=== PATIENT | male | born 1975 | race Caucasian/White ===

== ENCOUNTER 2024-09-09 15:22 | Outpatient (CLI) | payer BC, SELFPAY ==
--- NOTE | ~2024-09-09 | XR_ITS ---
EXAMINATION: XR chest 2V 09/09/2024 15:30 INDICATION: Nicotine dependence PROCEDURE: 2 view chest COMPARISON: 12/23/2011 FINDINGS: The lungs are clear. The cardiomediastinal silhouette is within normal limits. There are no pleural effusions. There is no pneumothorax suspected. IMPRESSION: 1: NO ACUTE CARDIOPULMONARY DISEASE. Reviewed, dictated and finalized at location A.
--- OUTSIDE RECORDS SUMMARY | 2024-09-09 15:26 | XMS_ITS | Clinical Summary ---
Author Organization [facility] Address [facility] [place] [address] Care Team Providers Care Millinery Department Manager Name Role Phone None, Provider MD Primary Care Provider Unavaila ble Allergies No known active allergies Medications HYDROcodone-darius taminophen (NORCO) 7.5-325 MG tablet Take 1 tablet by mouth. 12/02/2022 Active tamsulosin (FLOMAX) 0.4 MG Cap Take 1 capsule (0.4 mg total) by mouth daily. 12/02/2022 Active Social History Tobacco Use Types Packs/Day Years Used Date Smoking Tobacco: Every Day Cigarettes Smokeless Tobacco: Never Tobacco Cessation:Ready to Q uit: Not Asked; Counseling Given: Not Answered Alcohol Use Standard Drinks/Week Comments Not Currently 0 (1 standard drink = 0.6 oz pur e alcohol) occassioanlly Sex and Gender Information Value Date Recorded Sex Assigned at Not on file Legal Sex Male 4:18 PM CDT Gender Identity Not on file Sexual Orientation Not on file Last Filed Vital Signs Vital Sign Reading Time Taken Comments Blood Pressure 125/78 12/10/2022 1:28 PM CDT Pulse 50 12/10/2022 1:28 PM CDT Temperature 36.3 C (97.3 F) 12/10/2022 1:28 PM CDT Respiratory Rate 18 12/10/2022 1:28 PM CDT Oxygen Saturation 98% 12/10/2022 1:28 PM CDT Inhaled Oxygen Concentration - - Weight 77.1 kg (170 lb) 12/11/2022 6:51 AM CDT Height 177.8 cm (5' 10) 12/11/2022 6:51 AM CDT Body Mass Index 24.39 12/11/2022 6:51 AM CDT Plan of Treatment Health Maintenance Due Date Last Done Comments Colorectal Cancer Screening Colonoscopy (10 Years) 1977 Annual Physical 1980 Hepatitis C 1995 DTaP, Tdap and Td Vaccines ( 1 - Tdap) 1996 Hepatitis B Vaccines (1 of 3 - 19+ 3-dose series) 1996 Pneumococcal Vaccine: Pediat rics (0 to 5 Years) and At-Risk Patients (6 to 49 Years) (1 of 2 - PCV) 1996 COVID-19 Vaccine ( - 2023-2 5 season) 2023 Meningococcal B Vaccine Aged Out No l onger eligible based on patient's age to complete this topic Meningococcal Vaccine Aged Out No manoj carolynn eligible based on patient's age to complete this topic RSV Immunizations Under 20 Months Aged Out No longer eligible based on patient's age to complete this topic Insurance Care Teams Millinery Department Manager Relationship Specialty Start Date End Date None, Provider, PCP - General UNKNOWN PHYSICIAN SPECIALTY 12/10/22
--- OUTSIDE RECORDS SUMMARY | 2024-09-09 15:26 | XMS_ITS | Continuity of Care Document ---
Author Organization [facility] Address [address] [place] [address] Phone Care Team Providers Care Supervisor Boat Outfitting Name Role Phone Administrative, Provider Unavailable Unavail able Procedures Procedure Date Medical Record Copy Medical Record Copy Per Page Affidavit Office/outpatient visit,est, mod 2009 Supplemental Report Office/outpatient visit,est, mod 2009 Supplemental Report Office/outpatient visit,est, mod 2009 X-ray exam of neck spine2-3 views X-ray exam of elbow, complete 0 Supplemental Report Office/outpatient visit,[place], [facility] [place] 2009 X-ray exam of ribs, one side X-ray exam of humerus, 2+ views 010 X-ray exam of elbow, complete 0 Measure blood oxygen level, single Advance Directives Directive Yes / No Effective Date File Name No Information Encounters Encounter Description Practice Location Reason(s) For Visit Diagnoses Date Provider Providers Copied on Encounter [facility], [address] [address], [place], [place], [id number], tel:[phone] [facility] No Information 0 Administrative Provider. [address] [facility], [address], [place], [place], [address], [place]. tel:[phone] Office/outpa tient visit,est, mod [facility], [address], [id number], tel:[phone] [facility] No Information Apr-2 2-201 0 Nancy Sancheza. [address] [address], [place], [place], [address], [place]. tel:[phone] Office/outpa tient visit,[facility], [facility] [facility], [address] [address], [place], [place], [id number], tel:[phone] [facility] No Information Apr-1 6-201 0 Nancy Sancheza. [address] [address], [place], [place], [address], [place]. tel:[phone] Office/outpa tient visit,[facility], [address], [id number], tel:[phone] [facility] No Information Mar-0 8-201 0 Nancy Bell. [address] [address], [place], [place], [address], [place]. tel:[phone] Office/outpa tient visit,[facility], [address], [id number], [place] tel:[phone] [facility] No Information Mar-2 5 0 Nancy Bell. [address], [id number], [place]. tel:[phone] Family History Family Member Type Diagnosis Age At Onset No Information Payers Payer name Insurance type Covered constitution party ID Authoriza tion(s) No Information Social History [...]
--- OUTSIDE RECORDS SUMMARY | 2024-09-09 15:26 | XMS_ITS | Continuity of Care Document ---
Author Organization [facility] Address [address] [place] [address] Phone Care Team Providers Care Second Class Welder Name Role Phone Giovanny Luz MD Unavailable Unavailable Procedures Procedure Date Rating Letter Office/outpatient visit,est, mod 2009 Supplemental Report Office/outpatient visit,est, mod 2009 Supplemental Report Office consultation, moderate 0 Advance Directives Directive Yes / No Effective Date File Name No Information Encounters Encounter Description Practice Location Reason(s) For Visit Diagnoses Date Provider Providers Copied on Encounter Rating Letter [facility], [address], [address] [place] [address], tel:[phone] [facility] No Information June-2 0-201 0 Sukh Baltazar. [address] [facility], [address], [place], [place], [address] , [place]. tel: [phone] [facility], [address], [id number], tel:[phone] [facility] No Information June-0 5-201 0 Sukh Baltazar. [address] [facility], [address], [place], [place], [address] , [place]. tel:[phone] [facility], [address] [facility] [address], [place], [address], tel:[phone] [facility] No Information May-0 6-201 0 Sukh Baltazar. [address] [facility], [address], [place], [place], [address] , [place]. [phone] Office consultation, moderate [facility], [address] [facility] [address], [place], [address], tel:[phone] [facility] No Information Apr-2 3-201 0 Sukh Baltazar. [address] [facility], [address], [place], [place], [address] , [place]. tel:[phone] Referring Provider: Arabella Bey, [facility] [address], [place], [address] . tel:[phone] Family History Family Member Type Diagnosis Age At Onset No Information Payers Payer name Insurance type Covered green party ID Boris monzon(s) Cam [id number] Social History Type Description Quantity Date Captured [...]
--- OUTSIDE RECORDS SUMMARY | 2024-09-09 15:26 | XMS_ITS | Clinical Summary ---
Author Organization [facility] Address [address] [place] [address] Phone Care Team Providers Care Baked Goods Stock Clerk Name Role Phone Provider, None Primary Care Provider Arun Wilcox III, MD, [facility] [phone] Allergies No known active allergies Medications HYDROcodone-darius taminophen (NORCO) 7.5-325 MG TabletIndicatio ns:Calculus of kidney and ureter Take 1 Tablet by mouth every 6 hours as needed for Moderate or more severe pain. 30 Tablet 3 Active Additional Information Patient not taking.Reported on 08/18/2024 tamsulosin (FLOMAX) 0.4 MG CapsuleIndicati ons:Calculus of kidney and ureter Take 1 Capsule by mouth daily. 14 Capsule 3 Active Additional Information Patient not taking.Reported on 08/18/2024 predniSONE (DELTASONE) 20 MG TabletIndicatio ns:Rash and other nonspecific skin eruption Take 2 Tablets by mouth daily for 5 days. 10 Tablet 5 08/24/19 25 Active Problems Problem Noted Date Diagnosed Date Non-recurrent bilateral ingu inal hernia without obstruction or gangrene 06/15/2019 Encounters Date Type Department Care Team Description 08/18/2024 5:05 PM CDT Urgent Care Visit [facility] [address] [place] [address] Noé Ball, JARED Rash and other nonspecific skin eruption (Primary Dx) Discharge Disposition: Discharged to home or Selfcare 08/18/2024 Travel from Last 3 Months Family History Medical History Relation Name Comments Alcohol Abuse Father Chronic Obstructive Pulmonary Disease Father Drug Abuse Father Heart Attack Father Heart Disease Father No Known Problems Half-Sister 1 No Known Problems Half-Sister 2 No Known Problems Half-Sister 3 Chronic Obstructive Pulmonary Disease Mother Heart Attack Mother Heart Disease Mother Hypertension Mother Seizures Mother No Known Problems Son Relation Name Status Comments Father Alive Half-Sister 1 Alive Half-Sister 2 Alive Half-Sister 3 Alive Mother Alive Son Alive Social History Tobacco Use Types Packs/Day Years Used Date Smoking Tobacco: Every Day Cigarettes 2 35.2 Started: 06/14/1989 Smokeless Tobacco: Never Tobacco Cessation:Ready to Q uit: Not Asked; Counseling Given: Not Answered Alcohol Use Standard Drinks/Week Comments Yes 0 (1 standard drink = 0.6 oz pur e alcohol) rare; social Sexually Active Control Partners Comments Not Currently Female Sex and Gender Information Value Date Recorded Sex Assigned at Not on file Legal Sex Male 11:10 PM CDT Gender Identity Not on file Sexual Orientation Not on file Last Filed Vital Signs Vital Sign Reading Time Taken Comments Blood Pressure 124/78 08/18/2024 5:11 PM CDT Pulse 89 08/18/2024 5:11 PM CDT Temperature 36.3 C (97.4 F) 08/18/2024 5:11 PM CDT Respiratory Rate 14 08/18/2024 5:11 PM CDT Oxygen Saturation 96% 08/18/2024 5:11 PM CDT Inhaled Oxygen Concentration - - Weight 77.3 kg (170 lb 8 oz) 12/09/2022 12:27 PM CDT Height 177.8 cm (5' 10) 12/09/2022 12:27 PM CDT Body Mass Index 24.46 12/09/2022 12:27 PM CDT Plan of Treatment Health Maintenance Due Date Last Done Comments Hepatitis C Virus (HCV) Screening 1977 TdaP Immunization 1977 Hepatitis B Immunization (1 of 3 - 19+ 3-dose series) 1996 Pneumococcal Immunization Co mbined (1 of 2 - PCV) 1996 Cologuard 2022 Colonoscopy 2022 Colorectal Cancer Screening 2022 Immunochemical Fecal Occult Blood 2022 SARS-COV-2 Immunization (2023- season) 2023 Influenza Immunization (#1) 2024 Respiratory Syncytial Virus (RSV) Immunization (Adult) (1 - 1-dose 75+ series) 2052 Human Papillomavirus (HPV) Immunization Aged Out No longer eligible b ased on patient's age to complete this topic Meningococcal Immunization (ACWY) Aged Out No longer eligible based on patient's age to complete this topic Rotavirus Immunization Aged Out No lo nger eligible based on patient's age to complete this topic [place] [address] [place] [address] [facility] Care Teams Baked Goods Stock Clerk Relationship Specialty Start Date End Date Provider, None [place] PCP - General 02/19/16 Lavinia Wilcox III, MD [address] [place] [address] Consulting Physician Urology 12/02/22
== END 2024-09-09 15:23 | disposition home or self-care (01) ==
LOC: ANHBWCIMG 15:24
PROVIDERS: PCP Nurse Practitioner Adult Health; Visit Provider Nurse Practitioner Adult Health
DX: F17.200 Nicotine dependence, unspecified, uncomplicated (principal)
CPT/HCPCS: 71046

== ENCOUNTER 2024-10-20 15:45 | Outpatient (CLI) | payer BC, SELFPAY ==
--- OUTSIDE RECORDS SUMMARY | 2009-07-06 07:00 | XMS_ITS | Continuity of Care Document ---
Author Organization [facility] Address [address] [place] [address] Phone Care Team Providers Care Linux Developer Name Role Phone Giovanny Luz MD Unavailable Unavailable Procedures Procedure Date Rating Letter Office/outpatient visit,est, mod 2009 Supplemental Report Office/outpatient visit,est, mod 2009 Supplemental Report Office consultation, moderate 0 Advance Directives Directive Yes / No Effective Date File Name No Information Encounters Encounter Description Practice Location Reason(s) For Visit Diagnoses Date Provider Providers Copied on Encounter Rating Letter [facility], [address], [address] [place] [address], tel:[phone] [facility] No Information June-2 0-201 0 Sukh Baltazar. [address] [facility], [address], [place], [place], [id number] , [place]. tel: [phone] Office/outpat ient visit,[facility] [place] [facility] [place] [facility], [address], [id number], tel:[phone] [facility] No Information June-0 5-201 0 Sukh Baltazar. [address] [facility], [address], [place], [place], [address] , [place]. tel:[phone] Office/outpat ient visit,[facility], [place] [facility] [place] [facility], [address] [facility] [address], [place], [id number], tel:[phone] [facility] No Information May-0 6-201 0 Sukh Baltazar. [address] [facility], [address], [place], [place], [address] , [place]. [phone] Office consultation, moderate [facility], [address] [facility] [address], [place], [id number], tel:[phone] [facility] No Information Apr-2 3-201 0 Sukh Baltazar. [address] [facility], [address], [place], [place], [address] , [place]. tel:[phone] Referring Provider: Arabella Bey, [facility] [address], [place], [address] . tel:[phone] Family History Family Member Type Diagnosis Age At Onset No Information Payers Payer name Insurance type Covered libertarian ID Boris monzon(s) Cam [id number] Social History Type Description Quantity Date Captured Comments Sex Male Smoking Status No Information Chief Complaint And Reason For Visit No Information Reason For Referral Reason For Referral No Information History Of Present Illness Encounter Date Complaint History Of Prese nt Illness No Information Functional Status Date Functional Assessmen t No Information Instructions Date Instruction Additional Infor mation No Information Assessments Type Assessment Date No Information Patient Care Teams Name Effective Dates (start - stop) Status Members No Information
--- OUTSIDE RECORDS SUMMARY | 2009-09-25 19:00 | XMS_ITS | Continuity of Care Document ---
Author Organization [facility] Address [address] [place] [address] Phone Care Team Providers Care Armhole Sewer Name Role Phone Administrative, Provider Unavailable Unavail able Procedures Procedure Date Medical Record Copy Medical Record Copy Per Page Affidavit Office/outpatient visit,est, mod 2009 Supplemental Report Office/outpatient visit,est, mod 2009 Supplemental Report Office/outpatient visit,est, mod 2009 X-ray exam of neck spine2-3 views X-ray exam of elbow, complete 0 Supplemental Report Office/outpatient visit,[place], [facility] [place] 2009 X-ray exam of ribs, one side X-ray exam of humerus, 2+ views 010 X-ray exam of elbow, complete 0 Measure blood oxygen level, single Advance Directives Directive Yes / No Effective Date File Name No Information Encounters Encounter Description Practice Location Reason(s) For Visit Diagnoses Date Provider Providers Copied on Encounter [facility], [address] [address], [place], [place], [id number], tel:[phone] [facility] No Information 0 Administrative Provider. [address] [facility], [address], [place], [place], [address], [place]. tel:[phone] Office/outpa tient visit,est, mod [facility], [address], [id number], tel:[phone] [facility] No Information Apr-2 2-201 0 Nancy Sancheza. [address] [address], [place], [place], [address], [place]. tel:[phone] Office/outpa tient visit,[facility], [facility] [place] [facility], [address] [address], [place], [place], [address], tel:[phone] [facility] No Information Apr-1 6-201 0 Nancy Sancheza. [address] [address], [place], [place], [address], [place]. tel:[phone] Office/outpa tient visit,[facility], [address], [id number], tel:[phone] [facility] No Information Mar-0 8-201 0 Nancy Bell. [address] [address], [place], [place], [address], [place]. tel:[phone] Office/outpa tient visit,[facility], [address], [id number], [place] tel:[phone] [facility] No Information Mar-2 5 0 Nancy Bell. [address], [id number], [place]. tel:[phone] Family History Family Member Type Diagnosis Age At Onset No Information Payers Payer name Insurance type Covered democrat ID Authoriza tion(s) No Information Social History Type Description Quantity Date Captured [...]
--- NOTE | ~2024-10-20 | XR_ITS ---
EXAM/ PROCEDURE: XR hip LT min 2V - 10/20/2024 15:50 CDT HISTORY: 49 years old Male with lt hip pain radiating into knee x 1 wk COMPARISON: None available TECHNIQUE: Two view(s) FINDINGS/ IMPRESSION: There are no fractures or dislocations.Joint space narrowing, subchondral sclerosis, subchondral cyst formation and osteophyte formation, compatible with mild osteoarthritis. Reviewed, dictated and finalized at location N.
--- NOTE | ~2024-10-20 | XR_ITS ---
X-rays left knee Indication: Hip pain radiating into knee Comparison: None Technique: 3 views left knee Findings/Impression: 1. No fracture, dislocation, or effusion left knee. 2. No significant degenerative changes. Reviewed, dictated and finalized at location R.
--- NOTE | ~2024-10-20 | XR_ITS ---
XR lumbar spine 2-3V 10/20/2024 16:03 Indication: Low back pain Procedure: 3 views lumbar spine Comparison: No prior studies for comparison. Findings: There is disc narrowing at L3-4 through L5-S1. There is grade 1 spondylolisthesis at L5-S1 secondary to spondylolysis. No acute fracture or traumatic malalignment. Sacral foramen are symmetric. Impression: 1: Mild lumbar spondylosis with grade 1 spondylolisthesis at L5-S1. Reviewed, dictated and finalized at location O. Impression: 1: Mild lumbar spondylosis with grade 1 spondylolisthesis at L5-S1.
--- OUTSIDE RECORDS SUMMARY | 2024-10-20 17:02 | XMS_ITS | Clinical Summary ---
Author Organization [facility] Address [facility] [place] [address] Care Team Providers Care Top Case Assembler Name Role Phone None, Provider MD Primary [...] to complete this topic Insurance Care Teams Top Case Assembler Relationship Specialty Start Date End Date None, Provider, PCP - General UNKNOWN PHYSICIAN SPECIALTY 12/10/22
--- OUTSIDE RECORDS SUMMARY | 2024-10-20 17:02 | XMS_ITS | Clinical Summary ---
Author Organization [facility] Address [address] [place] [address] Phone Care Team Providers Care Street Vendor Name Role Phone Provider, None Primary Care Provider Arun Wilcox III, MD, [facility] [phone] Allergies No known active allergies Medications HYDROcodone-darius [...] Additional Information Patient not taking.Reported on 08/18/2024 Active Problems Problem Noted Date Diagnosed Date Non-recurrent bilateral ingu inal hernia without obstruction or gangrene 06/15/2019 Encounters Date Type Department Care Team Description 09/11/2024 Travel 08/18/2024 5:05 PM CDT Urgent Care Visit [facility] [address] [place] [id number] Noé Ball PAC Rash and other nonspecific skin eruption (Primary [...] Date Smoking Tobacco: Every Day Cigarettes 2 35.4 Started: 06/14/1989 Smokeless Tobacco: Never Tobacco Cessation:Ready [...] Screening 2022 Immunochemical Fecal Occult Blood 2022 Influenza Immunization (#1) 2024 SARS-COV-2 Immunization () 10/18/2024 Respiratory Syncytial Virus (RSV) Immunization (Adult) (1 - 1-dose 75+ series) 2052 Human Papillomavirus (HPV) Immunization Aged Out No longer eligible b ased on patient's age to complete this topic Meningococcal Immunization (ACWY) Aged Out No longer eligible based on patient's age to complete this topic Rotavirus Immunization Aged Out No lo nger eligible based on patient's age to complete this topic Procedures Procedure Name Priority Date/Time Associated Diagnosis Comments LIPID PANEL Routine 09/11/2024 10:37 AM CDT Routine general medical examination at a health care facility Special screening for malignant neoplasm of prostate CMP (COMPREHENSIVE METABOLIC PANEL) Routine 09/11/2024 10:37 AM CDT Routine general medical examination at a health care facility Special screening for malignant neoplasm of prostate THYROID STIMULATING HORMONE (TSH) Routine 09/11/2024 10:37 AM CDT Routine general medical examination at a health care facility Special screening for malignant neoplasm of prostate PSA SCREEN Routine 09/11/2024 10:37 AM CDT Routine general medical examination at a health care facility Special screening for malignant neoplasm of prostate COMPLETE BLOOD COUNT (CBC) WITHOUT DIFF Routine 09/11/2024 10:37 AM CDT Routine general medical examination at a health care facility Special screening for malignant neoplasm of prostate from Last 3 Months Results * THYROID STIMULATING HORMONE (TSH) (09/11/2024 10:37 AM CDT) TSH 0.845 0.300 - 5.000 mIU/L 09/11/2024 12:45 PM CDT [facility] Blood Venipuncture / Unknown 09/11/2024 10:37 AM CDT 09/11/2024 11:25 AM CDT us Migdalia Spivey APRN CHEMISTRY ORDERABLES Final Result [facility] [address] [place] [address] * PSA SCREEN (09/11/2024 10:37 AM CDT) PSA SCREEN, TOTAL 0.42 <4.00 ng/mL 09/11/2024 11:59 AM CDT [facility] Blood Venipuncture / Unknown 09/11/2024 10:37 AM CDT 09/11/2024 11:25 AM CDT Narrative [facility] - 09/11/2024 11:59 AM CDT The ALINITY Total PSA assay is a Chemiluminescent Microparticle Immunoassay (CMIA) for the quantitative determination of total PSA (both free PSA and PSA complexed to [id number]) in human serum. Total PSA values obtained with different assay methods, including Cruz PSA assays, cannot be used interchangeably. Migdalia Spivey APRN CHEMISTRY ORDERABLES Final Result [facility] [address] [place] [address] * (ABNORMAL) LIPID PANEL (09/11/2024 10:37 AM CDT) CHOLESTEROL 220(H) <200 mg/dL 09/11/2024 11:41 AM CDT [facility] TRIGLYCERIDES 105 <150 mg/dL 09/11/2024 11:41 AM CDT [facility] HDL CHOLESTEROL 45 >40 mg/dL 11:41 AM CDT [facility] LDL 154(H) <130 mg/dL 09/11/2024 11:41 AM CDT [facility] VLDL 21 10 - 50 mg/dL 09/11/2024 11:41 AM CDT [facility] CHOL/HDL RATIO 4.9(H) 0.0 - 4.4 09/11/2024 11:41 AM CDT [facility] NON-HDL CHOLESTEROL 175(H) <130 mg/dL 09/11/2024 11:41 AM CDT [facility] IS THE PATIENT REQUIRED TO BE FASTING? Yes 09/11/2024 11:41 AM CDT [facility] HAS THE PATIENT BEEN FASTING? Yes 09/11/2024 11:41 AM CDT [facility] Blood Venipuncture / Unknown 09/11/2024 10:37 AM CDT 09/11/2024 11:25 AM CDT us Migdalia Spivey APRN CHEMISTRY ORDERABLES Final Result [facility] [address] [place] [address] * (ABNORMAL) COMPLETE BLOOD COUNT (CBC) WITHOUT DIFF (09/11/2024 10:37 AM CDT) WBC 7.28 4.00 - 12.00 10(3)/[facility] 09/11/2024 11:30 AM CDT [facility] RBC 4.98 4.40 - 5.80 10(6)/[facility] 09/11/2024 11:30 AM CDT [facility] HEMOGLOBIN (HGB) 16.1 13.0 - 16.5 g/dL 09/11/2024 11:30 AM CDT [facility] HEMATOCRIT (HCT) 45.4 38.0 - 50.0 % 09/11/2024 11:30 AM CDT [facility] MCV 91.2 82.0 - 96.0 fL 09/11/2024 11:30 AM CDT [facility] MCH 32.3(H) 26.0 - 32.0 pg 09/11/2024 11:30 AM CDT [facility] MCHC 35.5 31.0 - 36.0 g/dL 09/11/2024 11:30 AM CDT [facility] PLATELET COUNT 210 140 - 440 10(3)/[facility] 09/11/2024 11:30 AM CDT [facility] RDW 12.4 11.8 - 15.5 % 09/11/2024 11:30 AM CDT [facility] MPV 9.7 8.0 - 12.6 fL 09/11/2024 11:30 AM CDT [facility] Blood Venipuncture / Unknown 09/11/2024 10:37 AM CDT 09/11/2024 11:25 AM CDT us Migdalia Spivey PLATE GL[employer] INSTALLER HELPER HEMATOLOGY ORDERABLES Neda l Result [facility] [address] [place] [address] * (ABNORMAL) CMP (COMPREHENSIVE METABOLIC PANEL) (09/11/2024 10:37 AM CDT) SODIUM 141 136 - 145 mmol/L 09/11/2024 11:41 AM CDT [facility] POTASSIUM 4.3 3.5 - 5.1 mmol/L 09/11/2024 11:41 AM CDT [facility] CHLORIDE 109(H) 98 - 107 mmol/L 09/11/2024 11:41 AM CDT [facility] CO2, VENOUS 25 22 - 30 mmol/L 09/11/2024 11:41 AM CDT [facility] ANION GAP 11.3 <18.0 mmol/L 09/11/2024 11:41 AM CDT [facility] GLUCOSE 98 70 - 99 mg/dL 09/11/2024 11:41 AM CDT [facility] BUN 12 9 - 21 mg/dL 09/11/2024 11:41 AM CDT [facility] CREATININE, BLOOD 0.77 0.70 - 1.30 mg/dL 09/11/2024 11:41 AM CDT [facility] BUN/CREATININE RATIO 16 12 - 20 ratio 09/11/2024 11:41 AM CDT [facility] TOTAL PROTEIN 7.6 6.0 - 8.0 g/dL 09/11/2024 11:41 AM CDT [facility] ALBUMIN 4.4 3.5 - 5.0 g/dL 09/11/2024 11:41 AM CDT [facility] A/G RATIO 1.4 1.0 - 2.2 09/11/2024 11:41 AM CDT [facility] CALCIUM 9.1 8.7 - 10.5 mg/dL 09/11/2024 11:41 AM CDT [facility] T BILI 0.7 0.2 - 1.2 mg/dL 09/11/2024 11:41 AM CDT [facility] SGOT (AST) 22 <43 U/L 09/11/2024 11:41 AM CDT [facility] SGPT (ALT) 17 <56 U/L 09/11/2024 11:41 AM CDT [facility] ALKALINE PHOSPHATASE 58 40 - 150 U/L 09/11/2024 11:41 AM CDT [facility] IS THE PATIENT REQUIRED TO BE FASTING? No 09/11/2024 11:41 AM CDT [facility] GFR, ESTIMATED >60 >=60 09/11/2024 11:41 AM T [facility] Comment: Creatinine Clearance is the preferred criteria for selecting drug dose adjustments in renally impaired patients. The GFR is provided as additional pertinent clinical information. GFR is reported in mL/min/1.73 sq m. Calculation based on the Chronic Kidney Disease Epidemiology Collaboration (CKD- EPI) equation refit without adjustment for race. GFR, EST. >60 >=60 025 11:41 AM CDT [facility] GFR, EST. NONAFRICAN >60 >=60 09/11/2024 11:41 AM T [facility] Blood Venipuncture / Unknown 09/11/2024 10:37 AM CDT 09/11/2024 11:25 AM CDT Migdalia Spivey APRN CHEMISTRY ORDERABLES Final Result [facility] [address] [place] [address] from Last 3 Months Insurance [facility] Care Teams Street Vendor Relationship Specialty Start Date End Date Provider, None [place] PCP - General 02/19/16 Lavinia Wilcox III, MD [address] [place] [address] Consulting Physician Urology 12/02/22
== END 2024-10-20 15:46 | disposition home or self-care (01) ==
LOC: ANHBWCIMG 15:46
PROVIDERS: PCP Nurse Practitioner Adult Health; Visit Provider Nurse Practitioner Adult Health
DX: M54.30 Sciatica, unspecified side (principal); M25.552 Pain in left hip; M25.562 Pain in left knee; M54.16 Radiculopathy, lumbar region
CPT/HCPCS: 72100; 73502; 73562